=== PATIENT | female | born 1950 ===

== ENCOUNTER 2017-12-12 07:37 | Day surgery (SDC) | payer MEDICARE ==
[2017-02-04 09:45] VITALS: BMI 31.2
[2017-12-12] MEDS ORDERED: Propofol 10 mg/ml Inj (20 ML) ONE (08:50)
--- NOTE | 2017-12-12 08:50 | CP.SDSHP ---
Same Day Surgery H & P - History Proposed Procedure: Colonoscopy Pre-Op Diagnosis: Change in bowel habits, diarrhea - Previous Medical/Surgical History Cardiac: Hypertension Previous Surgical History: Hysterectomy - Allergies Allergies: Allergies No Known Allergies Allergy (Verified 12/16/14 11:05) - Current Medications Current Medications: See reconciliation sheet - Physical Exam General Appearance: WD WN female in NAD Vital Signs: Vital Signs 12/12/17 08:00 Temperature 98.4 F Pulse Rate 91 H Respiratory 19 Rate Blood Pressure 147/99 H O2 Sat by Pulse 99 Oximetry Mental Status: Alert & Oriented x3 Neuro: WNL Heart: WNL Lungs: WNL GI: WNL - {Optional Preform as Required} Abdomen: WNL - Impression Impression: Change in bowel habits, diarrhea Pt. Evaluated Today:Candidate for Anesthesia & Procedure: Yes - Date & Time Date: 12/12/17 Time: 08:49 Short Stay Discharge - Short Stay Discharge Admitting Diagnosis/Reason for Visit: THYROTOXICOSIS, UNSP WITHOUT THYROTOXIC CRISIS OR Disposition: HOME/ ROUTINE
[2017-12-12] MEDS ORDERED: Lactated Ringer's 1,000 ML IV ONE (09:05)
[2017-12-12 09:51] VITALS: RESP 14; TEMP 97.5; O2SAT 100
[2017-12-12 10:41] VITALS: BP 118/60; PULSE 76
== END 2017-12-12 10:35 | disposition home or self-care (01) ==
LOC: C.ENDO 07:37
PROVIDERS: ATTEND Internal Medicine Gastroenterology
DX: E05.90 Thyrotoxicosis, unspecified without thyrotoxic crisis or storm (principal); R19.4 Change in bowel habit; K64.8 Other hemorrhoids; K57.90 Diverticulosis of intestine, part unspecified, without perforation or abscess without bleeding
CPT/HCPCS: 45380; 88305; 88313; 88342; J2704; J7120